=== PATIENT | female | born 2000 | race Two or more races ===

== ENCOUNTER 2025-06-19 14:03 | Emergency (ER) | payer MEDICAID, OTHER ==
[~2025-06-19] VITALS: Ht 152.4 cm; Wt 65.9 kg
[2025-06-19] MEDS: SODIUM CHLORIDE 0.9% 1,000 ML IV ONE (14:15)
[2025-06-19 14:40] LABS: Hematocrit 47.7 % (36.0-46.0); Hemoglobin 16.7 g/dL (12.2-16.2); Mean Corpuscular Hemoglobin 29.3 pg (28.0-32.0); Mean Corpuscular Volume 83.6 fL (80.0-100.0); Nucleated Red Blood Cells % 0.1 %
[2025-06-19 14:56] LABS: Alanine Aminotransferase 37 U/L (7-40); Albumin 4.9 g/dL (3.2-4.8); Alkaline Phosphatase 77 U/L (46-116); Anion Gap 15 (5-15); BUN/Creatinine Ratio 13.6 (10.0-20.0); Blood Urea Nitrogen 9 mg/dL (9-23); Calcium 9.5 mg/dL (8.7-10.4); Carbon Dioxide 20 mmol/L (20-31); Chloride 99 mmol/L (98-107); Glucose 305 mg/dL (74-106); Magnesium 1.5 mg/dL (1.6-2.6); Potassium 4.3 mmol/L (3.5-5.1); Sodium 134 mmol/L (136-145); Total Protein 8.0 g/dL (5.7-8.2)
[2025-06-19 14:57] LABS: Bilirubin, Total 1.4 mg/dL (0.2-1.0)
[2025-06-19 14:58] LABS: Lactic Acid w/Reflex 2.2 mmol/L (0.4-2.0)
--- NOTE | 2025-06-19 15:26 | ED.PDOC ---
History of present illness HPI Comments 24-year-old female who presents to the ED with c/c of nausea Patient states she has been nausea with started earlier this a.m. and states that she was unable to keep anything down Patient states that she checked her blood sugar this morning and states it was in the 300s Patient states that she is diabetic but states she ran out of metformin 1 month prior Patient states that she has been attempting to get metformin from clinics but states that due to expense she has been unable to afford it Patient in the ED has blood glucose of 331 Patient in the ED has noted heart rate of 170 with otherwise stable vitals in the ED Patient otherwise denies vomiting diarrhea fever cough chills diaphoresis chest pain shortness of breath Patient denies any other symptoms at this time Patient denies . Past medical history: Diabetes Past surgical history: Denies Medications: Metformin Allergies: Denies Social history: denies ETOH denies tobacco use denies drug use DAMIAN ROSAS: HPI: Poor Historian. Patient has not been taking her metformin 1000 b.i.d. for at least a month because she could not afford it. Past Medical History: Diabetes Past Surgical History: REVIEW OF SYSTEMS: CONSTITUTIONAL: Denies acute: fever, diaphoresis, chills, generalized weakness. HEAD: Denies acute: headache, photophobia Eyes: Denies acute: Double vision, vision loss, eye pain, eye discharge. EARS: Denies acute: tinnitus, hearing loss, ear discharge, ear pain, THROAT: Denies acute: sore throat, swelling, difficulty swallowing , pain with swal lowing, change in voice. NECK: Denies acute: neck pain, neck swelling, stiff neck. HEART: Denies acute : chest pain, palpitations, LUNGS: Denies acute: SOB, wheezing, cough, hemoptysis ABDOMEN: Denies acute: abdominal pain, Vomiting, diarrhea, melena , hematemesis, hematochezia SKIN: Denies acute: rash, redness, lesions, itchiness. EXTREMITIES: Denies acute: calf pain, numbness, tingling, weakness, denies pain in extremity. Denies acute: Low back pain. Neuro: Denies acute: focal neurological deficit, motor or sensory focal neurological deficit, tremors, seizure like activity, confusion, dizziness, change in mental status, loss of bowel or bladder function, cauda equina like symptoms. : Denies acute: dysuria, hematuria, flank pain, increase in urinary frequency. PSYCH: Denies acute: hallucination, suicidal ideation, homicidal ideation. FEMALE: Denies acute: abnormal vaginal bleeding, foul odor, unusual discharge. PHYSICAL EXAM: General: -----no---acute distress, awake and alert. Head: normocephalic, atraumatic. Neck: supple, trachea is midline, no swelling. Throat: Normal phonation. Eyes:, no erythema, no purulent discharge, no proptosis, no icterus. Heart: regular rate, regular rhythm, no significant murmur appreciated. Lungs: no apparent respiratory distress, Able to speak in full sentences. No wheezing, no rhonchi, no crackles. No stridors Clear to auscultation bilaterally. Abdomen: non tender to palpation, non distended, soft, no guarding, no rebound, + bowel sounds. Neuro: Awake, Alert, oriented to name, self, situation, follows commands GCS=15. Speech is normal. Skin: no petechia, no purpura, no cyanosis, non-pale, not jaundice. Lower extremities: --no - Pitting edema no deformity, no focal swelling, no calf TTP. Makes eye contact. moves all four extremities. Face: no apparent facial droop. Ambulating in the ED independently. ED COURSE: DISCLAIMER: This medical document was created using an electronic medical record system with voice recognition software and computerized dictation system. Although this document has been carefully reviewed, there might still be some phonetic and typographical errors. Occasional wrong-word or "sound-alike" substitutions may have occurred due to the inherent limitations of voice recognition software. These areas are purely typographical due to imperfections of the software programs and do not reflect any compromise in the patient's medical care. Please read the chart carefully and recognize, using context, where these substitutions have occurred. Chief Complaint: Nausea Time Seen by MD: 15:19 History of present illness: Medications, Allergies Allergies: Coded Allergies: NO KNOWN ALLERGIES (Unverified , 06/19/25) Home Meds Active Scripts Metformin Hydrochloride (Metformin Hcl) 500 Mg Tab, 2 TAB PO BID for 30 Days, #120 TAB 2 Refills Prov:ELY FONTAINE DO 06/19/25 Information Source: Patient Mode of Arrival: Ambulatory Brought in by: self Past Medical History PAST MEDICAL HISTORY: DM Surgical History: Denies all surgeries MATERIALS MANAGEMENT MANAGER History: Denies all MATERIALS MANAGEMENT MANAGER Hx Family History Family History: Unknown Social History Smoker: Non-Smoker Alcohol: Denies ETOH Use Drugs: Denies Drug Use Lives In: Home Was a procedure done? Was a procedure done?: No Differential Diagnosis (DM) Differential Diagnosis: Dehydration, Diabetic Coma, DKA, Electrolyte Abnormality, Hyperglycemia, Hyperosmolar State X-Ray, Labs, Meds, VS Vital Signs Date Time Temp Pulse Resp B/P (MAP) Pulse Ox O2 Delivery O2 Flow Rate FiO2 06/19/25 19:20 99.9 104 14 116/76 (89) 98 99.9 06/19/25 19:20 104 14 98 Room Air* 0 21 06/19/25 14:05 98.4 117 18 139/89 99 98.4 Lab Test 06/19/25 17:47 06/19/25 17:09 06/19/25 14:23 06/19/25 14:08 Range/Units Urine Color Light-yellow Yellow Urine Clarity Clear Clear Urine pH 5.5 5.0-9.0 Urine Specific [place] 1.031 1.001-1.035 Urine Protein Trace H Negative Urine Ketones 4+ H Negative Urine Blood Negative Negative /uL Urine Nitrite Negative Negative Urine Bilirubin Negative Negative Urine Urobilinogen Normal Negative mg/dL Urine Leukocyte Esterase Negative Negative /uL Urine RBC 2 0 - 4 /hpf Urine Microscopic WBC 6 H 0-5 /HPF Urine Squamous Epithelial Cells Few <5 /hpf Urine Bacteria Few H None Seen /hpf Urine Mucus Few None Seen Urine Glucose 4+ H Normal mg/dL Lactic Acid Level 1.3 2.2 *H 0.4-2.0 mmol/L White Blood Count 8.8 4.4-10.8 10^3/uL Red Blood Count 5.70 H 4.0-5.20 10^6/uL Hemoglobin 16.7 H 12.2-16.2 g/dL Hematocrit 47.7 H 36.0-46.0 % Mean Corpuscular Volume 83.6 80.0-100.0 fL Mean Corpuscular Hemoglobin 29.3 28.0-32.0 pg Mean Corpuscular Hemoglobin Concent 35.1 32.0-36.0 g/dL Red Cell Distribution Width 13.9 11.8-14.3 % Platelet Count 174 140-450 10^3/uL Mean Platelet Volume 10.1 6.9-10.8 fL Neutrophils (%) (Auto) 91.8 H 37.0-80.0 % Lymphocytes (%) (Auto) 5.0 L 10.0-50.0 % Monocytes (%) (Auto) 2.6 0.0-12.0 % Eosinophils (%) (Auto) 0.5 0.0-7.0 % Basophils (%) (Auto) 0.1 0.0-2.0 % Neutrophils # (Auto) 8.1 1.6-8.6 10 ^3/uL Lymphocytes # (Auto) 0.4 0.4-5.4 10 ^3/uL Monocytes # (Auto) 0.2 0-1.3 10 ^3/uL Eosinophils # (Auto) 0 0-0.8 10 ^3/uL Basophils # (Auto) 0 0-0.2 10 ^3/uL Nucleated Red Blood Cells 0.1 % Sodium Level 134 L 136-145 mmol/L Potassium Level 4.3 3.5-5.1 mmol/L Chloride Level 99 98-107 mmol/L Carbon Dioxide Level 20 20-31 mmol/L Anion Gap 15 5-15 Blood Urea Nitrogen 9 9-23 mg/dL Creatinine 0.66 0.550-1.02 mg/dL Glomerular Filtration Rate Calc 126 >90 mL/min BUN/Creatinine Ratio 13.6 10.0-20.0 Serum Glucose 305 H 74-106 mg/dL Calcium Level 9.5 8.7-10.4 mg/dL Magnesium Level 1.5 L 1.6-2.6 mg/dL Total Bilirubin 1.4 H 0.2-1.0 mg/dL Aspartate Amino Transferase (AST) 37 13-40 U/L Alanine Aminotransferase (ALT) 37 7-40 U/L Alkaline Phosphatase 77 46-116 U/L Total Protein 8.0 5.7-8.2 g/dL Albumin 4.9 H 3.2-4.8 g/dL POC Glucose 332 H 70-106 mg/dl Current Medications Medications (Trade) Dose Ordered Sig/Virgil Route Start Time Stop Time Status Last Admin Sodium Chloride 1,000 ml @ 1,000 mls/hr Q1H ONCE IV 06/19/25 14:15 06/19/25 15:14 DC 06/19/25 14:15 Ondansetron HCl (Zofran) 8 mg ONCE ONCE IV 06/19/25 14:15 06/19/25 14:17 DC 06/19/25 16:42 Insulin Human Regular (InsuLIN R) 5 units ONCE ONCE IV 06/19/25 15:00 06/19/25 15:12 DC 06/19/25 16:42 Magnesium Sulfate/ Dextrose 100 ml @ 100 mls/hr ONCE ONCE IV 06/19/25 15:00 06/19/25 15:59 DC 06/19/25 19:40 Magnesium Oxide (Mag-Ox Tablet) 800 mg ONCE ONCE PO 06/19/25 15:00 06/19/25 15:12 DC 06/19/25 16:13 Metformin HCl (Glucophage) 500 mg ONCE ONCE PO 06/19/25 16:15 06/19/25 16:20 DC 06/19/25 16:15 Time of 1ST Reevaluation: 20:27 Reevaluation 1ST: Improved Patient Education/Counseling: Diagnosis, Treatment Family Education/Counseling: No Family Present Comments MDM: patient presented with the above HPI.--hyperglycemia----workup was initiated. patient was found with the above mentioned diagnosis. the following medications were ordered: please refer to order lists of meds and tests obtained by myself Dr. Fontaine. Patient ED course and VS have been stabilized. Patient has been reassessed in [facility] ED and remained in a stable condition. Pertinent incidental findings were discussed with the patient and/or family. Patient/family voices understanding and is agreeable with plan. Patient has been observed in the ED adequate length of time to insure improvement/stability. Escalation of care considered: Consideration of escalation to observation or admission Patient was DISCHARGED home in a stable condition. All the reports of any imaging studies that were ordered by myself were reviewed by myself. SEPSIS Sepsis Screen Date sepsis recognized/suspect: Jun 19, 2025 Time Sepsis recognized/suspect: 1404 Recent Procedure: No On Antibiotic Therapy: No Respiratory Rate >20: No Heart Rate >90: Yes Temp<36 C (96.8 F) or >38.3 C: No SBP <90 or MAP <65 mmHG: No New Acute Mental Status Change: No Is the patient on CPAP, BIPAP,: No Physician Orders Logistics Operations Manager (06/19/25 ) Vital Signs Date Time Temp Pulse Resp B/P (MAP) Pulse Ox O2 Delivery O2 Flow Rate FiO2 06/19/25 19:20 99.9 104 14 116/76 (89) 98 99.9 06/19/25 19:20 104 14 98 Room Air* 0 21 06/19/25 14:05 98.4 117 18 139/89 99 98.4 Laboratory Tests Test 06/19/25 14:23 06/19/25 17:09 Lactic Acid Level 2.2 mmol/L (0.4-2.0) *H 1.3 mmol/L (0.4-2.0) White Blood Count 8.8 10^3/uL (4.4-10.8) Medications Medications Dose Ordered Sig/Virgil Route Start Time Stop Time Status Last Admin Dose Admin Insulin Human Regular 5 units ONCE ONCE IV 06/19/25 15:00 06/19/25 15:12 DC 06/19/25 16:42 Magnesium Oxide 800 mg ONCE ONCE PO 06/19/25 15:00 06/19/25 15:12 DC 06/19/25 16:13 Magnesium Sulfate/ Dextrose 100 ml @ 100 mls/hr ONCE ONCE IV 06/19/25 15:00 06/19/25 15:59 DC 06/19/25 19:40 Metformin HCl 500 mg ONCE ONCE PO 06/19/25 16:15 06/19/25 16:20 DC 06/19/25 16:15 Ondansetron HCl 8 mg ONCE ONCE IV 06/19/25 14:15 06/19/25 14:17 DC 06/19/25 16:42 Sodium Chloride 1,000 ml @ 1,000 mls/hr Q1H ONCE IV 06/19/25 14:15 06/19/25 15:14 DC 06/19/25 14:15 Departure 1 Departure Time of Disposition: 16:12 Impression: Primary Impression: Hyperglycemia due to diabetes mellitus Additional Impressions: Hx of medication noncompliance Hypomagnesemia UTI (urinary tract infection) Disposition: 01 HOME / SELF CARE / HOMELESS Condition: Stable Additional Instructions: Additional instructions: Please read all instructions provided in this packet carefully. You MUST follow-up with your primary care/family doctor in 1 to 2 days. If you are unable to see your primary care/family doctor, please return to our emergency room for re-assessment and re-evaluation in 1 to 2 days. Return to the emergency room here in our facility or to the nearest ER [facility] if your symptoms change or worsen. CONSULTATIONS: you MUST Follow-up for consultation as soon as possible with: -endocrinology in 1-2 days. Please call for appointment. You MUST call the consultants office yourself to make an appointment. You may need to arrange that through your insurance and/or your primary/family doctor. If you are unable to see the as400 consultant in 1 to 2 days, you must return to our emergency room (or any other ER of your choice) for re-assessment and re- evaluation. Adequate fluid hydration. Although you have been discharged from the Emergency Department, this does not mean that you have a "clean bill of health". No definitive diagnosis for your symptoms has been made today. It is possible that you are in the process of developing a serious illness. This is why you must return to the ED without fail if any new or worsening symptoms develop. Monitor your blood sugar closely. Check your magnesium level in 5-7 days. e-Prescriptions Nitrofurantoin Monohydrate Mac (Macrobid) 100 Mg Cap 100 MG PO BID for 7 Days, #14 CAP Prov: ELY FONTAINE DO 06/19/25 Metformin Hydrochloride (Metformin Hcl) 500 Mg Tab 2 TAB PO BID for 30 Days, #120 TAB 2 Refills Prov: ELY FONTAINE DO 06/19/25 Discharged With: Self Critical Care Note Critical Care Time?: No I personally scribed for ELY FONTAINE DO ([email or web address]) on 06/19/25 at 15:26. Electronically submitted by Dayna Wang (INA). ELY FONTAINE DO Jun 19, 2025 15:26
[2025-06-19] MEDS ORDERED: METF-370 PO (16:13)
[2025-06-19] MEDS: MAGNESIUM OXIDE 400 MG TAB PO ONE (16:13)
[2025-06-19] MEDS: InsuLIN REG 1unit/0.01ml Soln (100units/ml) IV ONE (16:42)
[2025-06-19] MEDS: ONDANSETRON HCL 4 MG/2 ML VIAL IV ONE (16:42)
[2025-06-19 18:29] LABS: Urine Protein, UAD TRACE (Negative)
[2025-06-19 19:20] VITALS: BP 116/76; PULSE 104; RESP 14; TEMP 99.9; O2SAT 98
[2025-06-19] MEDS: MAGNESIUM SULFATE 1GM/100ML 100 ML IV ONE (19:40)
[2025-06-19] MEDS ORDERED: NITR-87 PO (20:28)
== END 2025-06-19 20:50 | disposition home or self-care (01) ==
LOC: ER 14:03
DX: E11.65 Type 2 diabetes mellitus with hyperglycemia (principal); E83.42 Hypomagnesemia; N39.0 Urinary tract infection, site not specified; Z79.84 Long term (current) use of oral hypoglycemic drugs; Z91.148 Patient's other noncompliance with medication regimen for other reason
CPT/HCPCS: 36415; 80053; 81001; 82947; 83605; 83735; 85025; 96361; 96365; 96375; 99284; J1815; J2405; J3475; J7030; 82962